=== PATIENT | male | born 1940 | race Caucasian/White ===

== ENCOUNTER → 2016-12-27 | Outpatient (CLI) | payer OTHER, MEDICAID | END | disposition home or self-care (01) | LOC: CFH 08:58 | PROVIDERS: ATTEND Internal Medicine Cardiovascular Disease | DX: I08.3 Combined rheumatic disorders of mitral, aortic and tricuspid valves (principal); I37.1 Nonrheumatic pulmonary valve insufficiency; Z95.5 Presence of coronary angioplasty implant and graft | CPT/HCPCS: 93306 ==

== ENCOUNTER → 2017-02-07 | Outpatient (CLI) | payer OTHER, MEDICAID ==
[~2017-02-07] MED LIST: APIX5TAB PO; CARV6.252 PO; DUTA0.5C PO; SILD20TA2 PO; SIMV40TA3 PO
== END | disposition home or self-care (01) ==
LOC: STAR 09:56
PROVIDERS: ATTEND Urology
DX: Z01.818 Encounter for other preprocedural examination (principal); N40.1 Benign prostatic hyperplasia with lower urinary tract symptoms
CPT/HCPCS: 81003; 87086; 93005

== ENCOUNTER 2017-02-18 08:56 | Observation (INO) | payer OTHER, MEDICAID ==
[2017-02-07 10:32] VITALS: BP 122/80
[~2017-02-18] VITALS: Ht 182.9 cm; Wt 90.6 kg
[2017-02-18] MEDS ORDERED: LIDOCAINE 1%, 2ML SQ PRN (09:30)
[2017-02-18] MEDS: LACTATED RINGERS 1,000 ML IV SCH ×2 (10:08→15:38)
[2017-02-18] MEDS ORDERED: FENTANYL PF 100 MCG/2ML ONE (10:51)
[2017-02-18] MEDS ORDERED: MIDAZOLAM 1 MG/ML, 2ML ONE (10:51)
[2017-02-18] MEDS ORDERED: PROPOFOL 10 MG/ML, 20ML ONE (12:16)
[2017-02-18] MEDS ORDERED: CEFAZOLIN 1,000 MG ONE (12:16)
[2017-02-18] MEDS ORDERED: PHENYLEPHRINE 10 MG/ML ONE (12:16)
[2017-02-18] MEDS ORDERED: MEPERIDINE/PF 25MG/0.5ML IVPush PRN (12:30)
[2017-02-18] MEDS ORDERED: METOCLOPRAMIDE 5 MG/ML, 2ML IV PRN (12:30)
[2017-02-18] MEDS ORDERED: PROMETHAZINE 25 MG/ML, 1ML IV PRN (12:30)
[2017-02-18] MEDS ORDERED: ACETAMINOPHEN 325 MG TABLET PO PRN (12:30)
[2017-02-18] MEDS ORDERED: LABETALOL 5MG/ML, 20ML IV PRN (12:30)
[2017-02-18] MEDS ORDERED: HYDROmorphone 1 MG/ML, 1ML IV PRN (12:30)
[2017-02-18] MEDS ORDERED: hydrALAzine 20 MG/ML, 1ML IV PRN (12:30)
[2017-02-18] MEDS ORDERED: ONDANSETRON 2MG/ML, 2ML IVPush PRN (12:30)
[2017-02-18] MEDS ORDERED: OXYcodone 5 MG/5 ML ORAL.SOL UDC PO PRN (12:30)
[2017-02-18] MEDS ORDERED: FENTANYL PF 100 MCG/2ML IV PRN (12:30)
[2017-02-18] MEDS ORDERED: OXYcodone 5 MG/5 ML ORAL.SOL UDC ONE (14:01)
[2017-02-18 14:45] VITALS: BP 135/86
[2017-02-18] MEDS ORDERED: ONDANSETRON 2MG/ML, 2ML IV PRN (15:30)
[2017-02-18] MEDS ORDERED: D5%-0.45NACL+KCL 20MEQ 1,000 ML IV SCH (15:30)
[2017-02-18] MEDS ORDERED: HYDROmorphone 2 MG/ML, 1ML IV PRN (15:30)
[2017-02-18] MEDS ORDERED: OPIUM/BELLADONNA SUPP.RECT 16.2-30 MG PR PRN (15:30)
[2017-02-18] MEDS: CARVEDILOL 6.25 MG TABLET PO SCH (18:27)
[2017-02-18 20:09] VITALS: BP 126/78
[2017-02-19] VITALS: BP 114/59
[2017-02-19] MEDS: OXYcodone/APAP 5/325MG TABLET PO PRN ×2 (00:10→06:05)
[2017-02-19 03:16] VITALS: BP 132/76
[2017-02-19 07:00] VITALS: BP 115/68
[2017-02-19] MEDS: CARVEDILOL 6.25 MG TABLET PO SCH (08:43)
[2017-02-19] MEDS ORDERED: OXYC-302 PO (10:01)
== END 2017-02-19 13:15 | disposition home or self-care (01) ==
LOC: OUT 08:56 → 4NOR 14:41 → OUT 21:58 → 4NOR 21:59 → INTOOBSV 21:59 → DCLOUNGE 02-19 12:44
PROVIDERS: ADMIT Urology; ATTEND Urology
DX: N40.1 Benign prostatic hyperplasia with lower urinary tract symptoms (principal); N13.8 Other obstructive and reflux uropathy; R31.9 Hematuria, unspecified; Z92.3 Personal history of irradiation; Z85.46 Personal history of malignant neoplasm of prostate
CPT/HCPCS: 52630; G0378; J0690; J2250; J2370; J2704; J3010; J3480; J7120

== ENCOUNTER 2017-02-21 15:30 | Emergency (ER) | payer OTHER, MEDICAID ==
[~2017-02-21] VITALS: Ht 182.9 cm; Wt 92.6 kg
[~2017-02-21 15:30] MED LIST changes: +OXYC-302 PO
[2017-02-21 18:28] VITALS: BP 143/66
== END 2017-02-21 18:30 | disposition home or self-care (01) ==
LOC: ED 16:57
DX: R60.0 Localized edema (principal); Z95.0 Presence of cardiac pacemaker; Z85.46 Personal history of malignant neoplasm of prostate; Z85.89 Personal history of malignant neoplasm of other organs and systems; Z96.89 Presence of other specified functional implants; Z98.62 Peripheral vascular angioplasty status

== ENCOUNTER 2017-09-01 13:24 | Day surgery (SDC) | payer MEDICARE, MEDICAID ==
[~2017-09-01] VITALS: Ht 180.3 cm; Wt 90.5 kg
[2017-09-01] MEDS ORDERED: SODIUM CHLORIDE 0.9% 1,000 ML IV SCH (14:02)
[2017-09-01 14:07] VITALS: BP 132/78
[2017-09-01] MEDS ORDERED: CEFAZOLIN PMX 1GM/50ML 50 ML IVPB ONE (14:30)
[2017-09-01] MEDS ORDERED: ATOR40TA PO (14:37)
[2017-09-01] MEDS ORDERED: NITR0.4T SL (14:39)
[2017-09-01 14:50] LABS: HEMATOCRIT 46.1 % (39.2-51.8); HEMOGLOBIN 15.9 g/dL (13.7-18.0); WHITE BLOOD COUNT 7.6 x10^3/uL (3.4-10)
[2017-09-01 14:59] LABS: BLOOD UREA NITROGEN 13 mg/dL (7-18)
[2017-09-01] MEDS ORDERED: FENTANYL PF 100 MCG/2ML ONE (15:48)
[2017-09-01] MEDS ORDERED: CEFAZOLIN PMX 1GM/50ML 50 ML ONE (15:49)
[2017-09-01] MEDS ORDERED: CEFAZOLIN 1,000 MG ONE (15:49)
[2017-09-01] MEDS ORDERED: MIDAZOLAM 1 MG/ML, 5ML ONE (15:49)
[2017-09-01] MEDS ORDERED: LIDOCAINE 2%, 20ML ONE (15:49)
== END 2017-09-01 18:49 | disposition home or self-care (01) ==
LOC: CACL 13:24 → 5SO 17:20 → CACL 18:49
PROVIDERS: ATTEND Internal Medicine Cardiovascular Disease
DX: Z45.010 Encounter for checking and testing of cardiac pacemaker pulse generator [battery] (principal); I25.10 Atherosclerotic heart disease of native coronary artery without angina pectoris; I48.0 Paroxysmal atrial fibrillation; E78.2 Mixed hyperlipidemia; E78.5 Hyperlipidemia, unspecified; Z95.5 Presence of coronary angioplasty implant and graft; Z95.0 Presence of cardiac pacemaker
CPT/HCPCS: 33228; 36415; 71020; 80048; 85025; 93005; 99156; 99157; C1785; J0690; J2250; J3010; J3490

== ENCOUNTER 2018-01-02 17:16 | Inpatient (IN) | payer MEDICARE, MEDICAID ==
[~2018-01-02] VITALS: Ht 180.3 cm; Wt 89.5 kg
[~2018-01-02 17:16] MED LIST changes: +ATOR40TA PO; +NITR0.4T SL
[2018-01-02] MEDS ORDERED: SODIUM CHLORIDE FLUSH 10ML SYR IVF ONE (18:00)
[2018-01-02 18:02] LABS: BASOPHILS # (AUTO) 0.04 x10^3/uL (0-0.1); BASOPHILS % (AUTO) 1 % (0-1); EOSINOPHILS # (AUTO) 0.08 x10^3/uL (0-0.4); EOSINOPHILS % (AUTO) 1 % (1-7); LYMPHOCYTES # (AUTO) 2.09 x10^3/uL (1-3.4); LYMPHOCYTES % (AUTO) 27 % (22-44); MD NO; MEAN CORPUSCULAR HGB CONC 33.9 g/dL (33.2-36.2); MEAN CORPUSCULAR VOLUME 94.4 fL (81-97); MEAN PLATELET VOLUME 7.8 fL (7.4-10.4); MONOCYTES # (AUTO) 0.58 x10^3/uL (0.2-0.8); MONOCYTES % (AUTO) 8 % (2-9); NEUTROPHILS # (AUTO) 4.94 x10^3/uL (1.8-6.8); NEUTROPHILS % (AUTO) 64 % (42-75); PLATELET COUNT 203 x10^3/uL (130-400); RED BLOOD COUNT 4.94 x10^6/uL (4.38-5.82); RED CELL DISTRIBUTION WIDTH 14.8 % (9.4-14.8)
[2018-01-02 18:14] LABS: ALBUMIN 3.7 g/dL (3.4-5.0); ANION GAP 5 mmol/L (5-15); CALCIUM 8.5 mg/dL (8.5-10.1); CHLORIDE 108 mmol/L (98-107); CREATININE 1.26 mg/dL (0.7-1.3)
[2018-01-02 18:16] LABS: INTERNATIONAL NORMALIZED RATIO 1.12 (0.93-1.1); PROTHROMBIN TIME 11.6 Seconds (9.6-11.5)
[2018-01-02 18:18] LABS: FREE T4 (FREE THYROXINE) 0.85 ng/dL (0.76-1.46); TROPONIN I < 0.015 ng/mL (0.000-0.045)
[2018-01-02 18:24] LABS: THYROID STIMULATING HORMONE 0.794 mIU/L (0.358-3.740)
[2018-01-02] MEDS ORDERED: DIGOXIN 0.25 MG/ML, 2ML ONE (18:34)
[2018-01-02] MEDS ORDERED: DIGOXIN 0.25 MG/ML, 2ML IVPush ONE (19:00)
[2018-01-02 19:57] LABS: TROPONIN I < 0.015 ng/mL (0.000-0.045)
[2018-01-02] MEDS ORDERED: SODIUM CHLORIDE FLUSH 10ML SYR IVF PRN (21:00)
[2018-01-02] MEDS ORDERED: NITROGLYCERIN 0.4 MG BOTTLE (25 TABS) SL SCH (21:30)
[2018-01-02] MEDS ORDERED: POLYETHYLENE GLYCOL 17 GM PACKET PO PRN (21:30)
[2018-01-02] MEDS ORDERED: ACETAMINOPHEN 325 MG TABLET PO PRN (21:30)
[2018-01-02] MEDS ORDERED: ONDANSETRON 2MG/ML, 2ML IVPush PRN (21:30)
[2018-01-02] MEDS ORDERED: NITROGLYCERIN 0.4 MG BOTTLE (25 TABS) SL PRN (21:30)
[2018-01-02] MEDS ORDERED: BISACODYL 10 MG SUPP PR PRN (21:30)
[2018-01-02] MEDS ORDERED: morphine SULFATE 10 MG/ML, 1ML IVPush PRN (21:30)
[2018-01-02 22:32] VITALS: BP 116/70
[2018-01-02] MEDS: SODIUM CHLORIDE FLUSH 10ML SYR IVF SCH (23:23)
[2018-01-02] MEDS: ATORVASTATIN 40 MG TABLET PO SCH (23:24)
[2018-01-02] MEDS: APIXABAN 5 MG TABLET PO SCH (23:24)
[2018-01-02] MEDS: CARVEDILOL 6.25 MG TABLET PO SCH (23:24)
[2018-01-03 02:53] VITALS: BP 98/59
[2018-01-03 05:14] LABS: BASOPHILS # (AUTO) 0.05 x10^3/uL (0-0.1); BASOPHILS % (AUTO) 1 % (0-1); EOSINOPHILS # (AUTO) 0.13 x10^3/uL (0-0.4); EOSINOPHILS % (AUTO) 2 % (1-7); LYMPHOCYTES # (AUTO) 2.04 x10^3/uL (1-3.4); LYMPHOCYTES % (AUTO) 29 % (22-44); MD NO; MEAN CORPUSCULAR HEMOGLOBIN 31.5 pg (27.5-34.5); MEAN CORPUSCULAR HGB CONC 33.4 g/dL (33.2-36.2); MEAN CORPUSCULAR VOLUME 94.3 fL (81-97); MEAN PLATELET VOLUME 7.8 fL (7.4-10.4); MONOCYTES # (AUTO) 0.74 x10^3/uL (0.2-0.8); MONOCYTES % (AUTO) 11 % (2-9); NEUTROPHILS # (AUTO) 4.06 x10^3/uL (1.8-6.8); NEUTROPHILS % (AUTO) 58 % (42-75); PLATELET COUNT 164 x10^3/uL (130-400); RED BLOOD COUNT 4.54 x10^6/uL (4.38-5.82); RED CELL DISTRIBUTION WIDTH 14.4 % (9.4-14.8)
[2018-01-03 05:16] LABS: ALBUMIN 3.2 g/dL (3.4-5.0); ANION GAP 4 mmol/L (5-15); CALCIUM 8.3 mg/dL (8.5-10.1); CHLORIDE 112 mmol/L (98-107)
[2018-01-03 05:23] LABS: ALANINE AMINOTRANSFERASE 30 U/L (12-78); ALKALINE PHOSPHATASE 69 U/L (45-117); BILIRUBIN,TOTAL 0.8 mg/dL (0.2-1.0); CREATININE 1.09 mg/dL (0.7-1.3); TROPONIN I < 0.015 ng/mL (0.000-0.045)
[2018-01-03] MEDS: ASPIRIN 81 MG TABLET EC PO SCH ×2 (05:38→05:42)
[2018-01-03 06:34] VITALS: BP 154/79
[2018-01-03] MEDS: APIXABAN 5 MG TABLET PO SCH ×2 (07:47→20:17)
[2018-01-03] MEDS: CARVEDILOL 6.25 MG TABLET PO SCH ×3 (07:47→20:17)
[2018-01-03] MEDS: SENNA/DOCUSATE TABLET PO SCH (07:48)
[2018-01-03 07:49] VITALS: BP 94/62
[2018-01-03] MEDS: SODIUM CHLORIDE FLUSH 10ML SYR IVF SCH ×2 (07:49→20:16)
[2018-01-03] MEDS ORDERED: DIGOXIN 0.25 MG/ML, 2ML IVPush ONE (10:00)
[2018-01-03 10:58] LABS: TROPONIN I < 0.015 ng/mL (0.000-0.045)
[2018-01-03] MEDS ORDERED: DIGOXIN 0.25 MG TABLET PO SCH (11:30)
[2018-01-03 12:47] VITALS: BP 99/62
[2018-01-03] MEDS: AMIODARONE 200 MG TABLET PO SCH ×3 (15:16→20:16)
[2018-01-03] MEDS: DIGOXIN 0.25 MG TABLET PO SCH (15:17)
[2018-01-03 19:52] VITALS: BP 138/83
[2018-01-03] MEDS: ATORVASTATIN 40 MG TABLET PO SCH (20:17)
[2018-01-04 01:49] VITALS: BP 112/71
[2018-01-04] MEDS: ASPIRIN 81 MG TABLET EC PO SCH (05:16)
[2018-01-04] MEDS: SENNA/DOCUSATE TABLET PO SCH (07:38)
[2018-01-04 08:50] VITALS: BP 118/78
[2018-01-04] MEDS: APIXABAN 5 MG TABLET PO SCH (08:58)
[2018-01-04] MEDS: AMIODARONE 200 MG TABLET PO SCH (08:58)
[2018-01-04] MEDS: SODIUM CHLORIDE FLUSH 10ML SYR IVF SCH (08:59)
[2018-01-04] MEDS: DIGOXIN 0.25 MG TABLET PO SCH (08:59)
[2018-01-04] MEDS: CARVEDILOL 6.25 MG TABLET PO SCH (08:59)
[2018-01-04] MEDS ORDERED: AMIO200T42 PO (10:08)
[2018-01-04] MEDS ORDERED: CARV6.252 PO (10:08)
== END 2018-01-04 14:22 | disposition home or self-care (01) | DRG 309 ==
LOC: ED 21:15 → EDIP 22:01 → 5SO 22:16
PROVIDERS: ADMIT Internal Medicine; ATTEND Internal Medicine
PROC: 4B02XSZ Measurement of Cardiac Pacemaker, External Approach (ICD-10-PCS; principal; 2018-01-03)
DX: I48.91 Unspecified atrial fibrillation (principal); I25.110 Atherosclerotic heart disease of native coronary artery with unstable angina pectoris; D68.59 Other primary thrombophilia; I48.92 Unspecified atrial flutter; I48.2 Chronic atrial fibrillation; E78.5 Hyperlipidemia, unspecified; I10 Essential (primary) hypertension; L30.9 Dermatitis, unspecified; Z79.01 Long term (current) use of anticoagulants; Z80.0 Family history of malignant neoplasm of digestive organs; Z82.49 Family history of ischemic heart disease and other diseases of the circulatory system; Z85.46 Personal history of malignant neoplasm of prostate; Z85.819 Personal history of malignant neoplasm of unspecified site of lip, oral cavity, and pharynx; Z85.828 Personal history of other malignant neoplasm of skin; Z92.3 Personal history of irradiation; Z95.0 Presence of cardiac pacemaker; Z95.5 Presence of coronary angioplasty implant and graft
CPT/HCPCS: 36415; 71045; 80048; 80053; 82040; 83735; 84439; 84443; 84484; 85025; 85610; 85730; 93005; 96374; 96376; J1160

== ENCOUNTER 2018-02-12 07:47 | Day surgery (SDC) | payer MEDICARE, MEDICAID ==
[~2018-02-12] VITALS: Ht 180.3 cm; Wt 86.8 kg
[~2018-02-12 07:47] MED LIST changes: +AMIO200T42 PO
[2018-02-12] MEDS ORDERED: SODIUM CHLORIDE 0.9% 500 ML IV PRN (08:24)
[2018-02-12 08:35] VITALS: BP 102/78
[2018-02-12] MEDS ORDERED: AMIO200T42 PO (08:48)
[2018-02-12 08:55] LABS: ANION GAP 10 mmol/L (5-15); CALCIUM 8.7 mg/dL (8.5-10.1); CHLORIDE 110 mmol/L (98-107); CREATININE 1.14 mg/dL (0.7-1.3)
[2018-02-12] MEDS ORDERED: PLEASE ENTER HEIGHT AND WEIGHT MC SCH (09:00)
== END 2018-02-12 12:16 ==
LOC: CACL 07:47
PROVIDERS: ATTEND Internal Medicine Cardiovascular Disease
DX: I48.91 Unspecified atrial fibrillation (principal); I25.10 Atherosclerotic heart disease of native coronary artery without angina pectoris; E78.5 Hyperlipidemia, unspecified; Z95.0 Presence of cardiac pacemaker; Z95.5 Presence of coronary angioplasty implant and graft
CPT/HCPCS: 36415; 80048; 92960; 93005

== ENCOUNTER → 2018-03-27 | Outpatient (CLI) | payer MEDICARE, MEDICAID ==
[~2018-03-27] MED LIST changes: +AMIO100T4 PO; +Antibiotic PO
== END ==
LOC: STAR 09:09
PROVIDERS: ATTEND Surgery
DX: Z02.9 Encounter for administrative examinations, unspecified (principal)

== ENCOUNTER → 2018-04-13 | Outpatient (CLI) | payer MEDICAID, MEDICARE ==
[2018-04-13 12:52] LABS: CHLORIDE 109 mmol/L (98-107)
[2018-04-13 12:55] LABS: BASOPHILS # (AUTO) 0.05 x10^3/uL (0-0.1); BASOPHILS % (AUTO) 1 % (0-1); EOSINOPHILS % (AUTO) 3 % (1-7); LYMPHOCYTES # (AUTO) 1.67 x10^3/uL (1-3.4); LYMPHOCYTES % (AUTO) 23 % (22-44); MD NO; MEAN CORPUSCULAR HEMOGLOBIN 31.2 pg (27.5-34.5); MEAN CORPUSCULAR HGB CONC 33.4 g/dL (33.2-36.2); MEAN CORPUSCULAR VOLUME 93.4 fL (81-97); MEAN PLATELET VOLUME 7.4 fL (7.4-10.4); MONOCYTES % (AUTO) 8 % (2-9); NEUTROPHILS # (AUTO) 4.78 x10^3/uL (1.8-6.8); NEUTROPHILS % (AUTO) 66 % (42-75); PLATELET COUNT 263 x10^3/uL (130-400); RED BLOOD COUNT 4.71 x10^6/uL (4.38-5.82); RED CELL DISTRIBUTION WIDTH 14.8 % (9.4-14.8)
[2018-04-13 13:04] LABS: ALANINE AMINOTRANSFERASE 38 U/L (12-78); ALBUMIN 3.4 g/dL (3.4-5.0); ALKALINE PHOSPHATASE 75 U/L (45-117); ANION GAP 7 mmol/L (5-15); BILIRUBIN,TOTAL 0.7 mg/dL (0.2-1.0); CALCIUM 8.9 mg/dL (8.5-10.1); CHOL/HDL RATIO 2.2; CHOLESTEROL, TOTAL 130 mg/dL (140-239); CREATININE 1.17 mg/dL (0.7-1.3); HDL CHOL % 45 % (26-37); HDL CHOLESTEROL (DIRECT) 59 mg/dL (40-60); LDL CHOLESTEROL,CALCULATED 51 mg/dL (54-169); LDL/HDL RATIO 0.9 (0.5-3.0); T4 (THYROXINE) 9.9 mcg/dL (4.5-12.1); TOTAL PROTEIN 6.7 g/dL (6.4-8.2); TRIGLYCERIDES 98 mg/dL (50-200); VLDL CHOLESTEROL 20 mg/dL (0-25)
== END | disposition home or self-care (01) ==
LOC: CFH 09:25
PROVIDERS: ATTEND Internal Medicine Cardiovascular Disease
DX: I48.0 Paroxysmal atrial fibrillation (principal); E78.2 Mixed hyperlipidemia
CPT/HCPCS: 36415; 80053; 80061; 84436; 84443; 84481; 85025

== ENCOUNTER → 2018-06-02 | Outpatient (CLI) | payer MEDICARE, MEDICAID ==
[~2018-06-02] MED LIST changes: +OMNIPAQUE 350 MG/ML, 150 ML BOTTLE ONE
== END | disposition home or self-care (01) ==
LOC: CFH 10:25
PROVIDERS: ATTEND Urology
DX: N32.89 Other specified disorders of bladder (principal); I70.1 Atherosclerosis of renal artery; R31.0 Gross hematuria
CPT/HCPCS: 74178; 82565; Q9967

== ENCOUNTER 2018-06-04 05:36 | Day surgery (SDC) | payer MEDICARE, MEDICAID ==
[~2018-06-04] VITALS: Ht 180.3 cm; Wt 83.7 kg
[~2018-06-04 05:36] MED LIST changes: -OMNIPAQUE 350 MG/ML, 150 ML BOTTLE ONE
[2018-06-04] MEDS ORDERED: LACTATED RINGERS 1,000 ML IV SCH (06:26)
[2018-06-04 06:27] VITALS: BP 118/78
[2018-06-04] MEDS ORDERED: AMIO200T42 PO (06:27)
[2018-06-04] MEDS ORDERED: PROPOFOL 10 MG/ML, 50ML ONE (07:00)
== END 2018-06-04 09:25 | disposition home or self-care (01) ==
LOC: OUT 05:36
PROVIDERS: ATTEND Internal Medicine Gastroenterology
DX: K62.89 Other specified diseases of anus and rectum (principal); D12.2 Benign neoplasm of ascending colon; D12.4 Benign neoplasm of descending colon; K63.5 Polyp of colon; I25.10 Atherosclerotic heart disease of native coronary artery without angina pectoris; I48.91 Unspecified atrial fibrillation; I11.0 Hypertensive heart disease with heart failure; I50.9 Heart failure, unspecified; E78.2 Mixed hyperlipidemia; Z88.8 Allergy status to other drugs, medicaments and biological substances; Z86.010 Personal history of colon polyps; Z85.89 Personal history of malignant neoplasm of other organs and systems; Z85.46 Personal history of malignant neoplasm of prostate; Z98.890 Other specified postprocedural states; Z95.0 Presence of cardiac pacemaker; Z79.899 Other long term (current) drug therapy
CPT/HCPCS: 88305; 93005; J2704; J7120

== ENCOUNTER 2018-09-12 06:35 | Emergency (ER) | payer MEDICARE, MEDICAID ==
[~2018-09-12] VITALS: Ht 180.3 cm; Wt 82.9 kg
[2018-09-12 06:41] VITALS: BP 112/65
== END 2018-09-12 08:10 | disposition home or self-care (01) ==
LOC: ED 07:40
DX: J01.00 Acute maxillary sinusitis, unspecified (principal); J01.10 Acute frontal sinusitis, unspecified
CPT/HCPCS: 99283

== ENCOUNTER → 2019-09-30 | Outpatient (CLI) | payer MEDICARE, MEDICAID ==
[~2019-09-30] MED LIST changes: -NITR0.4T SL; +NITR0.4T41 SL
== END | disposition home or self-care (01) ==
LOC: CFH 09:57
PROVIDERS: ATTEND Internal Medicine Cardiovascular Disease
DX: I35.8 Other nonrheumatic aortic valve disorders (principal); I48.0 Paroxysmal atrial fibrillation; I25.10 Atherosclerotic heart disease of native coronary artery without angina pectoris; I25.2 Old myocardial infarction
CPT/HCPCS: 93306

== ENCOUNTER → 2020-05-01 | Outpatient (CLI) | payer MEDICARE, MEDICAID ==
[~2020-05-01] MED LIST changes: +SIMV40TA20 PO; -SIMV40TA3 PO
== END | disposition home or self-care (01) ==
LOC: CFH 12:11
PROVIDERS: ATTEND Internal Medicine Cardiovascular Disease
DX: I25.10 Atherosclerotic heart disease of native coronary artery without angina pectoris (principal); E78.2 Mixed hyperlipidemia; M47.814 Spondylosis without myelopathy or radiculopathy, thoracic region; I48.0 Paroxysmal atrial fibrillation; R41.89 Other symptoms and signs involving cognitive functions and awareness; R53.83 Other fatigue; Z95.0 Presence of cardiac pacemaker
CPT/HCPCS: 71046

== ENCOUNTER 2020-05-22 13:36 | Observation (INO) | payer MEDICARE, MEDICAID ==
[~2020-05-22] VITALS: Ht 180.3 cm; Wt 73.9 kg
--- NOTE | 2020-05-22 13:52 | NUR ---
HOLLY. REPORT RECEIVED FROM EMS. PT HAD SYNCOPE EPISODE AT HOME. PT SAT DOWN AND SYPTOMS RESOLVED AT THIS TIME. DENIES TRAUMA/FALLS. PT'S AOX4. PACEMAKER AND A-FIB. PT'S AOX4. RESPS EVEN AND UNLABORED. ALL MONITORS IN PLACE. CALL LIGHT WITHIN REACH. EKG DONE AT BEDSIDE. AT BEDSIDE.
--- NOTE | 2020-05-22 14:11 | NUR ---
edmd at bedside evaluating at this time.
[2020-05-22] MEDS ORDERED: SODIUM CHLORIDE FLUSH 10ML SYR IVF ONE (14:30)
[2020-05-22 14:40] LABS: BASOPHILS # (AUTO) 0.04 x10^3/uL (0-0.1); BASOPHILS % (AUTO) 0 % (0-1); EOSINOPHILS # (AUTO) 0.03 x10^3/uL (0-0.4); EOSINOPHILS % (AUTO) 0 % (1-7); LYMPHOCYTES # (AUTO) 1.03 x10^3/uL (1-3.4); LYMPHOCYTES % (AUTO) 12 % (22-44); MD NO; MEAN CORPUSCULAR HEMOGLOBIN 31.6 pg (27.5-34.5); MEAN CORPUSCULAR HGB CONC 33.5 g/dL (33.2-36.2); MEAN CORPUSCULAR VOLUME 94.3 fL (81-97); MEAN PLATELET VOLUME 7.2 fL (7.4-10.4); MONOCYTES # (AUTO) 0.59 x10^3/uL (0.2-0.8); MONOCYTES % (AUTO) 7 % (2-9); NEUTROPHILS # (AUTO) 6.57 x10^3/uL (1.8-6.8); NEUTROPHILS % (AUTO) 80 % (42-75); PLATELET COUNT 198 x10^3/uL (130-400); RED BLOOD COUNT 4.97 x10^6/uL (4.38-5.82); RED CELL DISTRIBUTION WIDTH 15.2 % (9.4-14.8)
[2020-05-22 14:49] LABS: ALBUMIN 3.7 g/dL (3.4-5.0); ANION GAP 5 mmol/L (5-15); CHLORIDE 118 mmol/L (98-107)
[2020-05-22 14:53] LABS: TROPONIN I < 0.015 ng/mL (0.000-0.045)
--- NOTE | 2020-05-22 15:17 | NUR ---
NS INFUSING AT THIS TIME. PT TOLERATED WELL.
[2020-05-22] MEDS ORDERED: SODIUM CHLORIDE 0.9% 1,000ML IVBOLUS ONE (15:30)
--- NOTE | 2020-05-22 15:37 | NUR ---
4 PACER INTERROGATION DONE AT BEDSIDE WITH FUAD PADILLA.
--- NOTE | 2020-05-22 16:16 | NUR ---
REPORT GIVEN TO DAKOTA PADILLA. ALL QUESTIONS ANSWERED.
[2020-05-22 16:59] VITALS: BP 145/77
[2020-05-22] MEDS ORDERED: SODIUM CHLORIDE 0.9% 1,000 ML IV SCH (17:25)
[2020-05-22] MEDS ORDERED: ACETAMINOPHEN 325 MG TABLET PO PRN (17:30)
[2020-05-22] MEDS ORDERED: ONDANSETRON 2MG/ML, 2ML IVPush PRN (17:30)
[2020-05-22 17:44] VITALS: BP 130/76
[2020-05-22 17:47] VITALS: BP 131/78
[2020-05-22 17:50] VITALS: BP 157/68
[2020-05-22 18:41] VITALS: BP 107/65
[2020-05-22 20:27] LABS: TROPONIN I < 0.015 ng/mL (0.000-0.045)
[2020-05-22] MEDS ORDERED: AMIODARONE 200 MG TABLET PO SCH (21:00)
[2020-05-22] MEDS: APIXABAN 5 MG TABLET PO SCH (21:54)
[2020-05-23] VITALS (10 sets, daily range): BP systolic 113–157; BP diastolic 65–82
[2020-05-23 02:38] LABS: BASOPHILS # (AUTO) 0.03 x10^3/uL (0-0.1); BASOPHILS % (AUTO) 1 % (0-1); EOSINOPHILS % (AUTO) 2 % (1-7); LYMPHOCYTES # (AUTO) 1.54 x10^3/uL (1-3.4); LYMPHOCYTES % (AUTO) 24 % (22-44); MD NO; MEAN CORPUSCULAR HEMOGLOBIN 31.5 pg (27.5-34.5); MEAN CORPUSCULAR HGB CONC 33.1 g/dL (33.2-36.2); MEAN CORPUSCULAR VOLUME 95.4 fL (81-97); MEAN PLATELET VOLUME 7.3 fL (7.4-10.4); MONOCYTES # (AUTO) 0.63 x10^3/uL (0.2-0.8); MONOCYTES % (AUTO) 10 % (2-9); NEUTROPHILS # (AUTO) 4.19 x10^3/uL (1.8-6.8); NEUTROPHILS % (AUTO) 65 % (42-75); PLATELET COUNT 182 x10^3/uL (130-400); RED BLOOD COUNT 4.37 x10^6/uL (4.38-5.82)
[2020-05-23 02:43] LABS: ANION GAP 4 mmol/L (5-15); CALCIUM 8.1 mg/dL (8.5-10.1); CHLORIDE 117 mmol/L (98-107)
[2020-05-23 02:49] LABS: TROPONIN I < 0.015 ng/mL (0.000-0.045)
[2020-05-23 02:55] LABS: ALANINE AMINOTRANSFERASE 31 U/L (12-78); ALKALINE PHOSPHATASE 64 U/L (45-117); BILIRUBIN,TOTAL 0.5 mg/dL (0.2-1.0); CREATININE 1.16 mg/dL (0.7-1.3); TOTAL PROTEIN 5.8 g/dL (6.4-8.2)
[2020-05-23] MEDS: APIXABAN 5 MG TABLET PO SCH (08:13)
[2020-05-23] MEDS ORDERED: ATOR40TA78 PO (15:11)
[2020-05-23] MEDS ORDERED: ATORVASTATIN 40 MG TABLET PO SCH (21:00)
== END 2020-05-23 17:29 | disposition home or self-care (01) ==
LOC: ED 14:00 → INTOOBSV 15:20 → 4WST 15:20
PROVIDERS: ADMIT Internal Medicine; ATTEND Internal Medicine
DX: R55 Syncope and collapse (principal); E86.0 Dehydration; N17.0 Acute kidney failure with tubular necrosis; I25.10 Atherosclerotic heart disease of native coronary artery without angina pectoris; I11.0 Hypertensive heart disease with heart failure; I50.32 Chronic diastolic (congestive) heart failure; I48.20 Chronic atrial fibrillation, unspecified; I48.92 Unspecified atrial flutter; E78.5 Hyperlipidemia, unspecified; L30.9 Dermatitis, unspecified; I65.21 Occlusion and stenosis of right carotid artery; N17.9 Acute kidney failure, unspecified; Z95.0 Presence of cardiac pacemaker; Z92.3 Personal history of irradiation; Z79.899 Other long term (current) drug therapy; Z79.01 Long term (current) use of anticoagulants; Z85.46 Personal history of malignant neoplasm of prostate; Z85.819 Personal history of malignant neoplasm of unspecified site of lip, oral cavity, and pharynx
CPT/HCPCS: 36415; 71045; 80048; 80053; 82040; 84443; 84484; 85025; 93005; 93306; 93880; 96360; 96361; 99285; G0378; J7030

== ENCOUNTER → 2020-07-24 | Outpatient (CLI) | payer MEDICARE, MEDICAID ==
[~2020-07-24] MED LIST changes: +ATOR40TA78 PO; +REGADENOSON 0.4 MG/5 ML SYRINGE ONE
== END | disposition home or self-care (01) ==
LOC: CFH 12:28
PROVIDERS: ATTEND Nurse Practitioner Family
DX: I25.10 Atherosclerotic heart disease of native coronary artery without angina pectoris (principal); I48.0 Paroxysmal atrial fibrillation
CPT/HCPCS: 78452; 93017; A9502; J2785

== ENCOUNTER → 2020-12-20 | Outpatient (CLI) | payer MEDICARE, MEDICAID ==
[~2020-12-20] MED LIST changes: -OXYC-302 PO; +OXYC1TAB14 PO
== END | disposition home or self-care (01) ==
LOC: CFH 12:35
PROVIDERS: ATTEND Internal Medicine Cardiovascular Disease
DX: I21.19 ST elevation (STEMI) myocardial infarction involving other coronary artery of inferior wall (principal); R94.31 Abnormal electrocardiogram [ECG] [EKG]; I65.21 Occlusion and stenosis of right carotid artery; I25.10 Atherosclerotic heart disease of native coronary artery without angina pectoris; I21.29 ST elevation (STEMI) myocardial infarction involving other sites
CPT/HCPCS: 78452; 93017; A9502; J2785

== ENCOUNTER 2021-03-11 17:00 | Emergency (ER) | payer MEDICARE, MEDICAID, OTHER ==
[~2021-03-11] VITALS: Ht 180.3 cm; Wt 85.3 kg
[~2021-03-11 17:00] MED LIST changes: -REGADENOSON 0.4 MG/5 ML SYRINGE ONE
--- NOTE | 2021-03-11 18:34 | NUR ---
Pt in c-collar from triage to CT read when MD d/c's it.
--- NOTE | 2021-03-11 18:34 | NUR ---
PT TO ROOM FROM LOBBY
--- NOTE | 2021-03-11 18:38 | NUR ---
MD Salinas to bedside for eval. Pt sitting up, RAMON. MD Salinas updating pt on POC including d/c.
[2021-03-11] MEDS ORDERED: LIDODERM 5% PATCH TD ONE ×2 (18:59→19:00)
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
[2021-03-11] MEDS ORDERED: ACETAMINOPHEN 500 MG TABLET PO ONE (19:00)
[2021-03-11] MEDS ORDERED: ACETAMINOPHEN 500 MG TABLET ONE ×2 (19:00→20:46)
--- NOTE | 2021-03-11 19:02 | NUR ---
Report to VALERIE Chapman, to assume full care. Pt awake and alert, TRICIAN.
--- NOTE | 2021-03-11 19:14 | NUR ---
REPORT FROM KIAN PADILLA. PT MEDICATED AND HAS NO OTHER NEEDS AT THIS TIME. WAITING FOR D/C PAPERS. CALL LIGHT IN REACH
[2021-03-11 19:59] VITALS: BP 125/73
--- NOTE | 2021-03-11 19:59 | NUR ---
Patient given discharge instructions and they have confirmed that they understand the instructions. Patient ambulatory with steady gait.
[2021-03-11] MEDS ORDERED: ALBUTEROL/IPRATROPIUM 2.5MG/0.5MG, 3 ML ONE (20:46)
== END 2021-03-11 20:01 | disposition home or self-care (01) ==
LOC: ED 18:38
DX: S16.1XXA Strain of muscle, fascia and tendon at neck level, initial encounter (principal); S39.012A Strain of muscle, fascia and tendon of lower back, initial encounter; I10 Essential (primary) hypertension; I48.91 Unspecified atrial fibrillation; I48.92 Unspecified atrial flutter; I25.10 Atherosclerotic heart disease of native coronary artery without angina pectoris; Z85.46 Personal history of malignant neoplasm of prostate; V49.49XA Driver injured in collision with other motor vehicles in traffic accident, initial encounter; Y93.89 Activity, other specified; Y92.410 Unspecified street and highway as the place of occurrence of the external cause; Y99.8 Other external cause status
CPT/HCPCS: 72125; 99284

== ENCOUNTER 2021-03-27 14:15 | Outpatient (CLI) | payer MEDICARE, MEDICAID ==
[2021-03-27] MEDS ORDERED: OMNIPAQUE 350 MG/ML, 150 ML BOTTLE ONE (14:47)
== END 2021-03-27 23:59 | disposition home or self-care (01) ==
LOC: CFH 14:15
PROVIDERS: ATTEND Physician Assistant
DX: K86.2 Cyst of pancreas (principal); R31.0 Gross hematuria; K40.90 Unilateral inguinal hernia, without obstruction or gangrene, not specified as recurrent
CPT/HCPCS: 74178; Q9967